=== PATIENT | female | born 1975 | race Caucasian/White ===

== ENCOUNTER 2018-05-03 13:37 | Observation (INO) ==
[2018-05-03] MEDS ORDERED: Sod Chloride 0.9% Inj 1,000 ML IV.SIG ONE (14:09)
--- NOTE | 2018-05-03 14:17 | ED ---
HPI General Chief complaint: GI Bleed Stated complaint: Rectal Bleeding Time Seen by Provider: 05/03/18 13:55 Source: patient History of Present Illness HPI Narrative: Patient is a 42-year-old female with history of hypertension and hyperlipidemia, presents the emergency room for evaluation of GI bleed. Patient reports that she is currently in the area for vacation, she drove from [place] to [place] and arrived on Sunday. Patient reports that since Sunday , she has been having a pain to her rectum. Patient reports that she assumed that she had a hemorrhoid and went to the pharmacy and bought Preparation H as well as sitz baths as well as lidocaine. Patient reports that she applied the creams last night and she woke up this morning with blood in her underwear as well as blood in her pants. Patient initially thought that this may be due to the onset of her menstrual cycle, after further investigation, patient noted to the blood was in her rectum and not from her vagina. Patient reports that she is wearing menstrual pads because of this bleeding, she has gone through 2 pads full of blood already, patient is concerned for this GI bleeding. Patient reports that she has had a GI workup in the past and has had a colonoscopy which was benign. Patient currently is not on any anticoagulants. Patient reports that sometimes she has lower abdominal cramping, she is comfortable at this time. Related Data Home Medications Medication Instructions Recorded Confirmed Synthroid 75 mcg PO DAILY 05/03/18 05/03/18 atenolol 50 mg PO DAILY 05/03/18 05/03/18 hydrochlorothiazide 25 mg PO DAILY 05/03/18 05/03/18 Allergies Allergy/AdvReac Type Severity Reaction Status Date / Time cephalexin [From Keflex] Allergy Hives Verified 05/03/18 13:51 amitriptyline AdvReac Hallucinati Verified 05/03/18 13:51 ons diazepam [From Valium] AdvReac Drowsiness Verified 05/03/18 13:51 pseudoephedrine AdvReac Palpitation Verified 05/03/18 13:51 [From Sudafed] s Review of Systems ROS Unobtainable All other systems reviewed negative except as stated in HPI Gastrointestinal Reports hematochezia PMFSH Medical History Medical History Anxiety (Acute) Colonoscopy planned (Acute) Hypertension (Acute) Inflammatory bowel disease (Acute) Normal endoscopy (Acute) Surgical History Surgical History Hx of tonsillectomy (Acute) Social History Social History Substance History: No History of Abuse Second Hand Smoke Exposure: No Smoking Status: Current every day smoker Tobacco Type: Cigarettes How Often Do You Have a Drink Containing Alcohol: Never Recent Travel in [facility] within the Last 8 Weeks: Yes Recent Out of Country Travel within the Last 8 Weeks: No Exam Narrative Exam Narrative: GENERAL: Mild distress SKIN: Focused skin assessment warm/dry. HEAD: Atraumatic. Normocephalic. EYES: Pupils equal and round. No scleral icterus. No injection or drainage. ENT: No nasal bleeding or discharge. Mucous membranes pink and moist. NECK: Trachea midline. No JVD. CARDIOVASCULAR: Regular rate and rhythm. No murmur appreciated. RESPIRATORY: No accessory muscle use. Clear to auscultation. Breath sounds equal bilaterally. GASTROINTESTINAL: Abdomen soft, non-tender, nondistended. Hepatic and splenic margins not palpable. Rectal exam performed with RN at bedside, patient with thrombosed external hemorrhoid at 7:00 region of her rectum, she has larry hematochezia, grossly positive stool on Hemoccult MUSCULOSKELETAL: No obvious deformities. No clubbing. No cyanosis. No edema. NEUROLOGICAL: Awake and alert. No obvious cranial nerve deficits. Motor grossly within normal limits. Normal speech. PSYCHIATRIC: Appropriate mood and affect; insight and judgment normal. Course Initial Documented Vital Signs Temperature 98.0 F 05/03/18 13:39 Pulse Rate 82 05/03/18 13:39 Respiratory Rate 20 05/03/18 13:39 Blood Pressure 156/80 H 05/03/18 13:39 Pulse Oximetry 95 05/03/18 13:39 Last Documented Vital Signs Temperature 97.4 F L 05/03/18 19:15 Pulse Rate 71 05/03/18 19:15 Respiratory Rate 18 05/03/18 19:15 Blood Pressure 108/61 05/03/18 19:15 Pulse Oximetry 97 05/03/18 19:15 Sign Out Sign Out Data: Patient Sign Out occurred on 05/03/18 at 15:14. Patient's care was discussed, and care was transferred from Carol Baez to Faviola Kemp MD. Sign Out Comment: patient signed out to Dr. Kemp at change of shift patient pending CT of abdomen and pelvis, I did recommend to patient need for observation in the hospital for serial H&H's and workup of her GI bleed Last updated by Carol Baez at 05/03/18 14:58 Post-Handoff Eval: Patient is resting comfortably. She states she is nervous about the bleeding. CT abd/pelvis shows ovarian cyst, no acute abnormalities. Patient informed of these results and admitted for further management. Medical Decision Making MDM Narrative Medical decision making narrative: During the course of the patients emergency department visit, the patients history, examination, and differential diagnosis were reviewed with the patient. The patient was placed on a cardiac rn with oximetry and frequent blood pressure monitoring. The patient had an IV access obtained and blood work sent for analysis. The patient was initially provided IV fluids. Patient has larry hematochezia, she is down to 2 heavy pads today, patient has been typed and screened, CBC, CMP, coags were ordered. CT of the abdomen pelvis also ordered as she does complain of abdominal cramping. Differential Diagnosis Differential Diagnosis: Colitis, hemorrhoids, anemia Medical Records Medical records reviewed: Yes I reviewed the patient's medical records. Lab Data Result diagrams: 05/03/18 20:25 05/03/18 14:30 Lab Results 05/03/18 05/03/18 05/03/18 Range/Units 14:30 14:30 14:30 CBC w Diff Auto diff final WBC 11.2 H (4.0-11.0) th/mm3 RBC 4.43 (4.00-5.30) mil/mm3 Hgb 12.7 (11.6-15.3) gm/dL Hct 37.4 (35.0-46.0) % MCV 84.4 (80.0-100.0) fL MCH 28.6 (27.0-34.0) pg MCHC 33.9 (32.0-36.0) % RDW 14.1 (11.6-17.2) % Plt Count 341 (150-450) th/mm3 MPV 7.1 (7.0-11.0) fL Neut % (Auto) 67.8 (16.0-70.0) % Lymph % (Auto) 27.3 (9.0-44.0) % [place] % (Auto) 3.9 (0.0-8.0) % Eos % (Auto) 0.6 (0.0-4.0) % Baso % (Auto) 0.4 (0.0-2.0) % Neut # (Auto) 7.6 (1.8-7.7) th/mm3 Lymph # (Auto) 3.1 (1.0-4.8) th/mm3 [place] # (Auto) 0.4 (0.0-0.9) th/mm3 Eos # (Auto) 0.1 (0.0-0.4) th/mm3 Baso # (Auto) 0.0 (0.0-0.2) th/mm3 WBC Differential . Differential Comment . PT 9.5 L (9.8-11.6) sec INR 0.9 Ratio APTT 25.7 (24.3-30.1) sec Sodium 138 (136-145) meq/L Potassium 3.5 (3.5-5.1) meq/L Chloride 101 (98-107) meq/L Carbon Dioxide 26.9 (21.0-32.0) meq/L Anion Gap 10 (5-15) meq/L BUN 10 (7-18) mg/dL Creatinine 0.65 (0.50-1.00) mg/dL Estimated GFR Greater than 89 (>89) mL/min Random Glucose 97 (74-106) mg/dL Calcium 8.9 (8.5-10.1) mg/dL Total Bilirubin 0.3 (0.2-1.0) mg/dL AST 20 (15-37) U/L ALT 28 (10-53) U/L Alkaline Phosphatase 66 (45-117) U/L Total Protein 7.9 (6.4-8.2) g/dL Albumin 3.6 (3.4-5.0) g/dL Ur Collection Type Urine Color (Yellw/Straw) Urine Clarity (Clear) Urine pH (5.0-8.5) Ur Specific [place] (1.002-1.035) Urine Protein (Neg-Trace) mg/dL Urine Glucose (UA) (Negative) mg/dL Urine Ketones (Negative) mg/dL Urine Occult Blood (Negative) Urine Nitrate (Negative) Urine Bilirubin (Negative) Urine Urobilinogen (Less than 2) mg/dL Ur Leukocyte Esterase (Negative) Urine WBC (0-5) /hpf Ur Squamous Epith Cells (0-5) /hpf Urine Bacteria (None) /hpf Micro UA Comment Urine Culture Comments Blood Type Blood Type Recheck Antibody Screen 05/03/18 05/03/18 05/03/18 Range/Units 14:35 14:37 20:25 CBC w Diff WBC (4.0-11.0) th/mm3 RBC (4.00-5.30) mil/mm3 Hgb 12.0 (11.6-15.3) gm/dL Hct 36.2 (35.0-46.0) % MCV (80.0-100.0) fL MCH (27.0-34.0) pg MCHC (32.0-36.0) % RDW (11.6-17.2) % Plt Count (150-450) th/mm3 MPV (7.0-11.0) fL Neut % (Auto) (16.0-70.0) % Lymph % (Auto) (9.0-44.0) % [place] % (Auto) (0.0-8.0) % Eos % (Auto) (0.0-4.0) % Baso % (Auto) (0.0-2.0) % Neut # (Auto) (1.8-7.7) th/mm3 Lymph # (Auto) (1.0-4.8) th/mm3 [place] # (Auto) (0.0-0.9) th/mm3 Eos # (Auto) (0.0-0.4) th/mm3 Baso # (Auto) (0.0-0.2) th/mm3 WBC Differential Differential Comment PT (9.8-11.6) sec INR Ratio APTT (24.3-30.1) sec Sodium (136-145) meq/L Potassium (3.5-5.1) meq/L Chloride (98-107) meq/L Carbon Dioxide (21.0-32.0) meq/L Anion Gap (5-15) meq/L BUN (7-18) mg/dL Creatinine (0.50-1.00) mg/dL Estimated GFR (>89) mL/min Random Glucose (74-106) mg/dL Calcium (8.5-10.1) mg/dL Total Bilirubin (0.2-1.0) mg/dL AST (15-37) U/L ALT (10-53) U/L Alkaline Phosphatase (45-117) U/L Total Protein (6.4-8.2) g/dL Albumin (3.4-5.0) g/dL Ur Collection Type Clean catch Urine Color Yellow (Yellw/Straw) Urine Clarity Clear (Clear) Urine pH 5.5 (5.0-8.5) Ur Specific [place] 1.015 (1.002-1.035) Urine Protein Negative (Neg-Trace) mg/dL Urine Glucose (UA) Negative (Negative) mg/dL Urine Ketones Negative (Negative) mg/dL Urine Occult Blood Negative (Negative) Urine Nitrate Negative (Negative) Urine Bilirubin Negative (Negative) Urine Urobilinogen 0.2 (Less than 2) mg/dL Ur Leukocyte Esterase Trace H (Negative) Urine WBC 0-5 (0-5) /hpf Ur Squamous Epith Cells 0-5 (0-5) /hpf Urine Bacteria Rare H (None) /hpf Micro UA Comment Culture not ind Urine Culture Comments Culture not ind Blood Type A Positive Blood Type Recheck Required Antibody Screen Negative Imaging Data Radiologist's impression: ITS Impressions Abdomen/Pelvis CT 05/03/18 14:09 CONCLUSION: 1. Diffuse hypodensity throughout the liver characteristic of steatosis. 2. Status post cholecystectomy. 3. 5 cm left ovarian cyst. 4. No acute process. Discharge Plan Discharge Disposition Patient Disposition: 30 Still Patient Discharge Condition Condition: Stable Discharge Details Discharge Problem: Acute GI bleeding Physicians Team ED Provider: Faviola Kemp Primary Care Provider: UNKNOWN, Attending Provider: Harshad Starkey Other Providers: Conrado Magallanes V Status ED Status: Left Department Discharge Information Discharge Date/Time: 05/03/18 17:50
[2018-05-03 14:43] LABS: Baso % (Auto) 0.4 % (0.0-2.0); Eos # (Auto) 0.1 th/mm3 (0.0-0.4); Eos % (Auto) 0.6 % (0.0-4.0); Hematocrit 37.4 % (35.0-46.0); Hemoglobin 12.7 gm/dL (11.6-15.3); Lymph # (Auto) 3.1 th/mm3 (1.0-4.8); Lymph % (Auto) 27.3 % (9.0-44.0); Mean Corpuscular HGB Conc 33.9 % (32.0-36.0); Mean Corpuscular Hemoglobin 28.6 pg (27.0-34.0); Mean Corpuscular Volume 84.4 fL (80.0-100.0); Mean Platelet Volume 7.1 fL (7.0-11.0); Mono # (Auto) 0.4 th/mm3 (0.0-0.9); Mono % (Auto) 3.9 % (0.0-8.0); Neut # (Auto) 7.6 th/mm3 (1.8-7.7); Neut % (Auto) 67.8 % (16.0-70.0); Platelet Count 341 th/mm3 (150-450); Red Blood Count 4.43 mil/mm3 (4.00-5.30); Red Cell Distribution Width 14.1 % (11.6-17.2); White Blood Count 11.2 th/mm3 (4.0-11.0)
[2018-05-03 14:47] LABS: Chloride 101 meq/L (98-107); Potassium 3.5 meq/L (3.5-5.1); Sodium 138 meq/L (136-145)
[2018-05-03 14:48] LABS: Bilirubin,Urine Negative (Negative); Clarity,Urine Clear (Clear); Color,Urine Yellow (Yellw/Straw); Glucose,Urine (UA) Negative (Negative); Leukocyte Esterase,Urine Trace (Negative); Nitrite,Urine Negative (Negative); PH,Urine 5.5 (5.0-8.5); Specific Gravity,Urine 1.015 (1.002-1.035); Urobilinogen,Urine 0.2 mg/dL (Less than 2)
[2018-05-03 14:50] LABS: Calcium 8.9 mg/dL (8.5-10.1)
[2018-05-03 14:51] LABS: Albumin 3.6 g/dL (3.4-5.0); Anion Gap 10 meq/L (5-15); Blood Urea Nitrogen 10 mg/dL (7-18); Carbon Dioxide 26.9 meq/L (21.0-32.0); Glucose,Random 97 mg/dL (74-106)
[2018-05-03 14:54] LABS: Activated Partial Thrombo Time 25.7 sec (24.3-30.1); Alanine Aminotransferase 28 U/L (10-53); Aspartate Aminotransferase 20 U/L (15-37); Glomerular Filtration Rate Greater Than 89 mL/min (>89); INR 0.9 Ratio; Prothrombin Time 9.5 sec (9.8-11.6)
[2018-05-03 14:55] LABS: Total Protein 7.9 g/dL (6.4-8.2)
[2018-05-03 14:57] LABS: Alkaline Phosphatase 66 U/L (45-117)
[2018-05-03 15:00] LABS: Bacteria,Urine Rare /hpf; Squamous Epithelial Cell,Urine 0-5 /hpf (0-5); WBC,Urine 0-5 /hpf (0-5)
--- NOTE | 2018-05-03 15:23 | CT ---
EXAM DATE: 05/03/2018 2:55 PM EDT AGE/SEX: 42 years / Female INDICATIONS: Abdominal and rectal pain for four days. Rectal bleeding for one day. CLINICAL DATA: This is the patient's initial encounter. Patient reports that signs and symptoms have been present for 1 day and indicates a pain score of 3/10. MEDICAL/SURGICAL HISTORY: Hypertension. None. RADIATION DOSE: 27.51 CTDI (mGy) ; Patient body habitus COMPARISON: No prior exams available for comparison. TECHNIQUE: Multiple contiguous axial images were obtained through the abdomen. Images were obtained using multiple row detector helical technique. Using automated exposure control and adjustment of the mA and/or kV according to patient size, radiation dose was kept as low as reasonably achievable to o btain optimal diagnostic quality images. DICOM format image data is available electronically for rev iew and comparison. FINDINGS: Lower Lungs: The visualized lower lungs are clear. Liver: The liver is diffusely hypodense. There are no space-occupying lesions or evidence of biliary duct dilatation. Postcholecystectomy clips are noted. Spleen: Homogeneous density without enlargement. Pancreas: Unremarkable without mass or calcification. Kidneys: Normal in size and shape. No evidence of mass or hydronephrosis. Adrenal Glands: Unremarkable. Aorta: The aorta and proximal iliac vessels are grossly unremarkable without aneurysmal dilation. Bowel/Mesentery: The bowel loops are grossly unremarkable. The cecum and sigmoid colon have a normal configuration. Abdominal Wall: Intact. Retroperitoneum: No evidence of adenopathy in the retrocrural, para-aortic, or deep pelvic regions. Bladder: Contours are smooth. Reproductive Organs: 5 cm cyst is identified in the left adnexal region. The uterus is unremarkable. Posttubal ligation clips are noted. Inguinal: The inguinal region is unremarkable without evidence of adenopathy. Bony Structures: Unremarkable. CONCLUSION: 1. Diffuse hypodensity throughout the liver characteristic of steatosis. 2. Status post cholecystectomy. 3. 5 cm left ovarian cyst. 4. No acute process. Electronically signed by: Nilesh Willis MD 05/03/2018 3:21 PM EDT
--- NOTE | 2018-05-03 16:12 | P.HPIM ---
History of Present Illness Primary Care Physician: UNKNOWN Chief Complaint: rectal bleed History of Present Illness: patient is a 42 y/o female with history of IBS who presented to ER with rectal bleed. she says that she started to have some rectal discomfort for the past few days while she was driving from [place]. she says that she tried some hemorrhoid cream with no significant relief.she says that she started to have some rectal bleed this morning. she says that she initially thought that she had her menstrual bleed however when she had the second episode she noticed that it was rectal bleed. she denies any abdominal pain, nausea, sob, dizziness. she says that she had colonoscopy four years ago during which she had polypectomy. - Diagnosis (1) Acute GI bleeding Inpatient Certification: I certify that the inpatient services were ordered in accordance with Medicare regulations governing the order. This includes certification that hospital inpatient services are reasonable and necessary and in the case of services not specified as inpatient-only under 42 CFR 419.22(n), that they are appropriately provided as inpatient services in accordance to with the 2-midnight benchmark under 43 CFR 412.3(e) Review of Systems All other systems reviewed negative except as stated in HPI PMFSH - History History Provided By: Patient - Medical History Medical History: Medical History (Last Updated 05/03/18 @ 14:45 by Ade Angeles) Anxiety Colonoscopy planned Hypertension Inflammatory bowel disease Normal endoscopy - Surgical History Surgical History: Surgical History (Last Updated 05/03/18 @ 14:45 by Ade Angeles) Hx of tonsillectomy - Tobacco History Second Hand Smoke Exposure: No Tobacco Use In Past 30 Days: No Smoking Status: Current every day smoker Tobacco Type: Cigarettes - Alcohol History How Often Do You Have a Drink Containing Alcohol: Monthly or less - Substance Use History Substance History: No History of Abuse - Travel History Recent Travel in the [place] Within the Last 8 Weeks: Yes Recent Travel Out of the Country Within the Last 8 Weeks: No - Immunization History Tetanus Immunization: <5 Years Hx Influenza Vaccine This Season: Yes Medications and Allergies Active Medications: Active Medications Sodium Chloride (Ns Inj) 1,000 mls @ 100 mls/hr IV.CONT .Q10H JASPER Sodium Chloride (Ns Flush) 2 ml IV.FLUSH PRN PRN PRN Reason: FLUSH AFTER USING IV ACCESS Allergies Allergy/AdvReac Type Severity Reaction Status Date / Time cephalexin [From Keflex] Allergy Hives Verified 05/03/18 13:51 amitriptyline AdvReac Hallucinati Verified 05/03/18 13:51 ons diazepam [From Valium] AdvReac Drowsiness Verified 05/03/18 13:51 pseudoephedrine AdvReac Palpitation Verified 05/03/18 13:51 [From Sudafed] s Exam Vital signs: Vital Signs 05/03/18 13:39 Temperature 98.0 F Pulse Rate 82 Respiratory Rate 20 Blood Pressure 156/80 H Pulse Oximetry 95 Intake & Output 05/02/18 05/03/18 05/03/18 18:59 06:59 18:59 Weight 127.7 kg Other: Date of Last Bowel Movement 05/03/18 - Constitutional no acute distress - Routine HEENT Exam Eye: Present: PERRL - Routine Neck Exam Present: supple, full ROM - Routine Respiratory Exam Present: CTA bilaterally - Routine Cardiovascular Exam Present: RRR - Routine Abdominal Exam Present: soft - Routine Extremities Exam Present: full ROM - Routine Neurological Exam Present: alert, oriented X3 Results - Labs CBC & Chem 7: 05/03/18 14:30 05/03/18 14:30 Labs: Short CBC 05/03/18 Range/Units 14:30 WBC 11.2 H (4.0-11.0) th/mm3 Hgb 12.7 (11.6-15.3) gm/dL Hct 37.4 (35.0-46.0) % Plt Count 341 (150-450) th/mm3 BMP 05/03/18 14:30 Sodium 138 Potassium 3.5 Chloride 101 Carbon Dioxide 26.9 BUN 10 Creatinine 0.65 Calcium 8.9 Liver Function 05/03/18 Range/Units 14:30 Total Bilirubin 0.3 (0.2-1.0) mg/dL AST 20 (15-37) U/L ALT 28 (10-53) U/L Alkaline Phosphatase 66 (45-117) U/L Albumin 3.6 (3.4-5.0) g/dL Urine 05/03/18 Range/Units 14:37 Urine Color Yellow (Yellw/Straw) Urine Clarity Clear (Clear) Urine pH 5.5 (5.0-8.5) Ur Specific [place] 1.015 (1.002-1.035) Urine Protein Negative (Neg-Trace) mg/dL Urine Glucose (UA) Negative (Negative) mg/dL - Imaging Impressions Abdomen/Pelvis CT 05/03/18 14:09 CONCLUSION: 1. Diffuse hypodensity throughout the liver characteristic of steatosis. 2. Status post cholecystectomy. 3. 5 cm left ovarian cyst. 4. No acute process. Caprini VTE Risk Assessment Caprini VTE Risk Assessment: No/Low Risk (score <= 1) VTE Pharmacological Exception Reason: Active bleeding Caprini Risk Assessment Model: Point Value = 1 Point Value = 2 Point Value = 3 Point Value = 5 Age 41-60 Minor surgery BMI > 25 kg/m2 Swollen legs Varicose veins or History of unexplained or recurrent spontaneous Oral contraceptives or hormone replacement Sepsis (< 1 month) Serious lung disease, including pneumonia (< 1 month) Abnormal pulmonary function Acute myocardial infarction Congestive heart failure (< 1 month) History of inflammatory bowel disease Medical patient at bed rest Age 61-74 Arthroscopic surgery Major open surgery (> 45 min) Laparoscopic surgery (> 45 min) Malignancy Confined to bed (> 72 hours) Immobilizing plaster cast Central venous access Age >= 75 History of VTE Family history of VTE Factor V Leiden Prothrombin [id number] Lupus anticoagulant Anticardiolipin antibodies Elevated serum homocysteine Heparin-induced thrombocytopenia Other congenital or acquired thrombophilia Stroke (< 1 month) Elective arthroplasty Hip, pelvis, or leg fracture Acute spinal cord injury (< 1 month) Prophylaxis Regimen: Total Risk Factor Score Risk Level Prophylaxis Regimen 0-1 Low Early ambulation 2 Moderate Order ONE of the following: *Sequential Compression Device (SCD) *Heparin 5000 units SQ BID 3-4 Higher Order ONE of the following medications: *Heparin 5000 units SQ TID *Enoxaparin/Lovenox 40 mg SQ daily (WT < 150 kg, CrCl > 30 mL/min) *Enoxaparin/Lovenox 30 mg SQ daily (WT < 150 kg, CrCl > 10-29 mL/min) *Enoxaparin/Lovenox 30 mg SQ BID (WT < 150 kg, CrCl > 30 mL/min) AND/OR *Sequential Compression Device (SCD) 5 or more Highest Order ONE of the following medications: *Heparin 5000 units SQ TID (Preferred with Epidurals) *Enoxaparin/Lovenox 40 mg SQ daily (WT < 150 kg, CrCl > 30 mL/min) *Enoxaparin/Lovenox 30 mg SQ daily (WT < 150 kg, CrCl > 10-29 mL/min) *Enoxaparin/Lovenox 30 mg SQ BID (WT < 150 kg, CrCl > 30 mL/min) AND *Sequential Compression Device (SCD) Assessment and Plan - Assessment (1) Acute GI bleeding Code(s): K92.2 - Gastrointestinal hemorrhage, unspecified Status: Acute Plan: keep NPO for now and start on IV fluid- monitor H/H and consult GI. - Plan Discussed Condition With: ER physician and the patient. Discharge Planning: awaiting GI evaluation.
[2018-05-03] MEDS: Sod Chloride 0.9% Inj 1,000 ML IV.CONT SCH (18:25)
[2018-05-03 20:51] LABS: Hematocrit 36.2 % (35.0-46.0)
[2018-05-03] MEDS ORDERED: Magnesium Citrate Liq 300 ML Bottle PO ONE (22:00)
[2018-05-04] MEDS: Sod Chloride 0.9% Inj 1,000 ML IV.CONT SCH (04:52)
[2018-05-04] MEDS ORDERED: PEG 3350/E-Lyte Soln 4000 ML Bottle PO ONE (08:30)
--- NOTE | 2018-05-04 09:21 | P.PN ---
Subjective Interval history: in no acute distress. still with rectal bleed- however with no abdominal pain, nausea, dizziness or sob. Physical Exam Vital signs: Vital Signs 05/03/18 13:39 05/03/18 17:05 05/03/18 19:15 Temperature 98.0 F 97.4 F L Pulse Rate 82 68 71 Respiratory Rate 20 18 Blood Pressure 156/80 H 140/77 108/61 Pulse Oximetry 95 96 97 05/03/18 20:00 05/04/18 00:00 05/04/18 08:00 Temperature 97.2 F L 96.1 F L 97.9 F Pulse Rate 69 66 65 Respiratory Rate 18 17 Blood Pressure 115/62 117/65 109/62 Pulse Oximetry 94 L 95 Intake & Output 05/03/18 05/04/18 05/04/18 18:59 06:59 18:59 Intake Total 580 / 580 1999 0 / 0 Balance 580 / 580 1999 / 1999 0 / 0 Weight 127.7 kg 128.367 kg Intake: IV 1999 NS Inj 1,000 ML @ 100 mls/hr IV 1000 / 1000 .CONT .Q10H JASPER Rx#:[id number] NS Inj 1,000 ML @ Wide Open IV. 1000 / 1000 SIG BOLUS ONE Rx#:[id number] Oral 480 / 480 0 / 0 Oral Supplement 100 / 100 Other: # Voids 3 Date of Last Bowel Movement 05/03/18 05/03/18 Weight On Admission 128.779 kg - Constitutional no acute distress - Routine Respiratory Exam Present: CTA bilaterally - Routine Cardiovascular Exam Present: RRR - Routine Abdominal Exam Present: soft - Routine Extremities Exam Comments: no pedal edema. - Routine Neurological Exam Present: alert, oriented X3 Results - Labs CBC & Chem 7: 05/03/18 20:25 05/03/18 14:30 Laboratory Results - last 24 hr 05/03/18 05/03/18 05/03/18 14:30 14:30 14:30 CBC w Diff Auto diff final WBC 11.2 H RBC 4.43 Hgb 12.7 Hct 37.4 MCV 84.4 MCH 28.6 MCHC 33.9 RDW 14.1 Plt Count 341 MPV 7.1 Neut % (Auto) 67.8 Lymph % (Auto) 27.3 [place] % (Auto) 3.9 Eos % (Auto) 0.6 Baso % (Auto) 0.4 Neut # (Auto) 7.6 Lymph # (Auto) 3.1 [place] # (Auto) 0.4 Eos # (Auto) 0.1 Baso # (Auto) 0.0 WBC Differential . Differential Comment . PT 9.5 L INR 0.9 APTT 25.7 Sodium 138 Potassium 3.5 Chloride 101 Carbon Dioxide 26.9 Anion Gap 10 BUN 10 Creatinine 0.65 Estimated GFR Greater than 89 Random Glucose 97 Calcium 8.9 Total Bilirubin 0.3 AST 20 ALT 28 Alkaline Phosphatase 66 Total Protein 7.9 Albumin 3.6 Ur Collection Type Urine Color Urine Clarity Urine pH Ur Specific [place] Urine Protein Urine Glucose (UA) Urine Ketones Urine Occult Blood Urine Nitrate Urine Bilirubin Urine Urobilinogen Ur Leukocyte Esterase Urine WBC Ur Squamous Epith Cells Urine Bacteria Micro UA Comment Urine Culture Comments Blood Type Blood Type Recheck Antibody Screen 05/03/18 05/03/18 05/03/18 14:35 14:37 20:25 CBC w Diff WBC RBC Hgb 12.0 Hct 36.2 MCV MCH MCHC RDW Plt Count MPV Neut % (Auto) Lymph % (Auto) [place] % (Auto) Eos % (Auto) Baso % (Auto) Neut # (Auto) Lymph # (Auto) [place] # (Auto) Eos # (Auto) Baso # (Auto) WBC Differential Differential Comment PT INR APTT Sodium Potassium Chloride Carbon Dioxide Anion Gap BUN Creatinine Estimated GFR Random Glucose Calcium Total Bilirubin AST ALT Alkaline Phosphatase Total Protein Albumin Ur Collection Type Clean catch Urine Color Yellow Urine Clarity Clear Urine pH 5.5 Ur Specific [place] 1.015 Urine Protein Negative Urine Glucose (UA) Negative Urine Ketones Negative Urine Occult Blood Negative Urine Nitrate Negative Urine Bilirubin Negative Urine Urobilinogen 0.2 Ur Leukocyte Esterase Trace H Urine WBC 0-5 Ur Squamous Epith Cells 0-5 Urine Bacteria Rare H Micro UA Comment Culture not ind Urine Culture Comments Culture not ind Blood Type A Positive Blood Type Recheck Required Antibody Screen Negative - Imaging Impressions Abdomen/Pelvis CT 05/03/18 14:09 CONCLUSION: 1. Diffuse hypodensity throughout the liver characteristic of steatosis. 2. Status post cholecystectomy. 3. 5 cm left ovarian cyst. 4. No acute process. Assessment and Plan - Assessment (1) Acute GI bleeding Code(s): K92.2 - Gastrointestinal hemorrhage, unspecified Status: Acute Plan: keep NPO for now and continue IV fluid- monitor H/H - GI consulted. - Plan Discharge Planning: when GI w/u completed and cleared by GI.
--- NOTE | 2018-05-04 09:31 | P.CONGI ---
History of Present Illness Consult date: 05/04/18 Consult reason: Bright red rectal bleeding, GI bleed Chief complaint: GI BLEED History of Present Illness: This is a 42-year-old female who has been vacationing from the [place] area presented to the emergency room for bright red rectal bleeding on 05/03/2018. She initially reported some pain and pressure in her rectum 4 days ago and mild [id number] medication to treat herself which included Preparation H and sitz baths. When she awakened the next morning she noticed bright red blood and noted that the rectal pain and pressure had subsided currently patient denies any nausea or vomiting or dyspepsia. She does have a history of GERD which is controlled with Protonix p.o. 40 mg daily and before meals. Patient currently denies any abdominal pain or bloating. Patient denies any family history of colon cancer and states her last EGD and colonoscopy were in 2013 in [place]. Patient does note a history of IBS and history of some constipation. Currently this a.m. patient still complains of some bright red rectal bleeding but does currently deny any rectal pressure or pain. Current hemoglobin is 12. CT of the abdomen did show some liver steatosis, status post cholecystectomy, 5 cm ovarian cyst, but otherwise no acute process. <Maura Wisdom - Last Filed: 05/04/18 09:19> Review of Systems All other systems reviewed negative except as stated in HPI <Maura Wisdom - Last Filed: 05/04/18 09:19> PMFSH - History History Provided By: Patient - Medical History Medical History: Medical History (Last Updated 05/03/18 @ 14:45 by Ade Angeles) Anxiety Colonoscopy planned Hypertension Inflammatory bowel disease Normal endoscopy - Surgical History Surgical History: Surgical History (Last Updated 05/03/18 @ 14:45 by Ade Angeles) Hx of tonsillectomy - Tobacco History Second Hand Smoke Exposure: No Tobacco Use In Past 30 Days: Yes Smoking Status: Current every day smoker Tobacco Type: Cigarettes - Alcohol History How Often Do You Have a Drink Containing Alcohol: Never - Substance Use History Substance History: No History of Abuse - Travel History Recent Travel in the [place] Within the Last 8 Weeks: Yes Recent Travel Out of the Country Within the Last 8 Weeks: No - Immunization History Tetanus Immunization: <5 Years Hx Influenza Vaccine This Season: Yes <Maura Wisdom - Last Filed: 05/04/18 09:19> - Medical History Medical History: Medical History (Last Updated 05/03/18 @ 14:45 by Ade Angeles) Anxiety Colonoscopy planned Hypertension Inflammatory bowel disease Normal endoscopy - Surgical History Surgical History: Surgical History (Last Updated 05/03/18 @ 14:45 by Ade Angeles) Hx of tonsillectomy <Zuly Rodriguez - Last Filed: 05/04/18 10:22> Medications and Allergies Active Medications: Active Medications Sodium Chloride (Ns Inj) 1,000 mls @ 100 mls/hr IV.CONT .Q10H JASPER Last Admin: 05/04/18 04:52 Dose: 100 mls/hr Ondansetron HCl (Zofran Inj) 4 mg IV.PUSH Q8H PRN PRN Reason: nausea Last Admin: 05/04/18 00:09 Dose: 4 mg Sodium Chloride (Ns Flush) 2 ml IV.FLUSH PRN PRN PRN Reason: FLUSH AFTER USING IV ACCESS <Maura Wisdom - Last Filed: 05/04/18 09:19> Active Medications: Active Medications Sodium Chloride (Ns Inj) 1,000 mls @ 100 mls/hr IV.CONT .Q10H JASPER Last Admin: 05/04/18 04:52 Dose: 100 mls/hr Ondansetron HCl (Zofran Inj) 4 mg IV.PUSH Q8H PRN PRN Reason: nausea Last Admin: 05/04/18 00:09 Dose: 4 mg Sodium Chloride (Ns Flush) 2 ml IV.FLUSH PRN PRN PRN Reason: FLUSH AFTER USING IV ACCESS <Zuly Rodriguez - Last Filed: 05/04/18 10:22> Allergies Allergy/AdvReac Type Severity Reaction Status Date / Time cephalexin [From Keflex] Allergy Hives Verified 05/03/18 13:51 amitriptyline AdvReac Hallucinati Verified 05/03/18 13:51 ons diazepam [From Valium] AdvReac Drowsiness Verified 05/03/18 13:51 pseudoephedrine AdvReac Palpitation Verified 05/03/18 13:51 [From Sudafed] s Home Medications Medication Instructions Recorded Confirmed Type Synthroid 75 mcg PO DAILY 05/03/18 05/03/18 History atenolol 50 mg PO DAILY 05/03/18 05/03/18 History hydrochlorothiazide 25 mg PO DAILY 05/03/18 05/03/18 History Exam Vital signs: Vital Signs 05/03/18 13:39 05/03/18 17:05 05/03/18 19:15 Temperature 98.0 F 97.4 F L Pulse Rate 82 68 71 Respiratory Rate 20 18 Blood Pressure 156/80 H 140/77 108/61 Pulse Oximetry 95 96 97 05/03/18 20:00 05/04/18 00:00 05/04/18 08:00 Temperature 97.2 F L 96.1 F L 97.9 F Pulse Rate 69 66 65 Respiratory Rate 18 17 Blood Pressure 115/62 117/65 109/62 Pulse Oximetry 94 L 95 Intake & Output 05/03/18 05/04/18 05/04/18 18:59 06:59 18:59 Intake Total 580 / 580 2000 / 2000 0 / 0 Balance 580 / 580 2000 / 2000 0 / 0 Weight 127.7 kg 128.367 kg Intake: IV 2000 / 1999 NS Inj 1,000 ML @ 100 mls/hr IV 1000 / 1000 .CONT .Q10H JASPER Rx#:[id number] NS Inj 1,000 ML @ Wide Open IV. 1000 / 1000 SIG BOLUS ONE Rx#:[id number] Oral 480 / 480 0 / 0 Oral Supplement 100 / 100 Other: # Voids 3 Date of Last Bowel Movement 05/03/18 05/03/18 Weight On Admission 128.779 kg - Constitutional mild distress (Overweight) - Routine HEENT Exam Head: Present: normocephalic, atraumatic Eye: Present: EOMI ENT: Present: mucous membranes moist - Routine Respiratory Exam Present: CTA bilaterally - Routine Cardiovascular Exam Present: RRR - Routine Abdominal Exam Present: soft (Round, no obvious tenderness to light palpation) - Routine Skin Exam Present: intact - Routine Neurological Exam Present: alert, oriented X3 <Maura Wisdom - Last Filed: 05/04/18 09:19> Vital signs: Vital Signs 05/03/18 13:39 05/03/18 17:05 05/03/18 19:15 Temperature 98.0 F 97.4 F L Pulse Rate 82 68 71 Respiratory Rate 20 18 Blood Pressure 156/80 H 140/77 108/61 Pulse Oximetry 95 96 97 05/03/18 20:00 05/04/18 00:00 05/04/18 08:00 Temperature 97.2 F L 96.1 F L 97.9 F Pulse Rate 69 66 65 Respiratory Rate 18 17 Blood Pressure 115/62 117/65 109/62 Pulse Oximetry 94 L 95 05/04/18 09:49 05/04/18 10:00 Temperature 98.5 F Pulse Rate 66 Respiratory Rate 17 Blood Pressure 117/65 Pulse Oximetry 96 Intake & Output 05/03/18 05/04/18 05/04/18 18:59 06:59 18:59 Intake Total 580 / 580 1999 0 / 0 Balance 580 / 580 1999 0 / 0 Weight 127.7 kg 128.367 kg Intake: IV 1999 NS Inj 1,000 ML @ 100 mls/hr IV 1000 / 1000 .CONT .Q10H JASPER Rx#:[id number] NS Inj 1,000 ML @ Wide Open IV. 1000 / 1000 SIG BOLUS ONE Rx#:[id number] Oral 480 / 480 0 / 0 Oral Supplement 100 / 100 Other: # Voids 3 Date of Last Bowel Movement 05/03/18 05/03/18 Weight On Admission 128.779 kg <Zuly Rodriguez - Last Filed: 05/04/18 10:22> Results - Labs CBC & Chem 7: 05/03/18 20:25 05/03/18 14:30 Labs: Laboratory Results - last 24 hr 05/03/18 05/03/18 05/03/18 14:30 14:30 14:30 CBC w Diff Auto diff final WBC 11.2 H RBC 4.43 Hgb 12.7 Hct 37.4 MCV 84.4 MCH 28.6 MCHC 33.9 RDW 14.1 Plt Count 341 MPV 7.1 Neut % (Auto) 67.8 Lymph % (Auto) 27.3 [place] % (Auto) 3.9 Eos % (Auto) 0.6 Baso % (Auto) 0.4 Neut # (Auto) 7.6 Lymph # (Auto) 3.1 [place] # (Auto) 0.4 Eos # (Auto) 0.1 Baso # (Auto) 0.0 WBC Differential . Differential Comment . PT 9.5 L INR 0.9 APTT 25.7 Sodium 138 Potassium 3.5 Chloride 101 Carbon Dioxide 26.9 Anion Gap 10 BUN 10 Creatinine 0.65 Estimated GFR Greater than 89 Random Glucose 97 Calcium 8.9 Total Bilirubin 0.3 AST 20 ALT 28 Alkaline Phosphatase 66 Total Protein 7.9 Albumin 3.6 Ur Collection Type Urine Color Urine Clarity Urine pH Ur Specific [place] Urine Protein Urine Glucose (UA) Urine Ketones Urine Occult Blood Urine Nitrate Urine Bilirubin Urine Urobilinogen Ur Leukocyte Esterase Urine WBC Ur Squamous Epith Cells Urine Bacteria Micro UA Comment Urine Culture Comments Blood Type Blood Type Recheck Antibody Screen 05/03/18 05/03/18 05/03/18 14:35 14:37 20:25 CBC w Diff WBC RBC Hgb 12.0 Hct 36.2 MCV MCH MCHC RDW Plt Count MPV Neut % (Auto) Lymph % (Auto) [place] % (Auto) Eos % (Auto) Baso % (Auto) Neut # (Auto) Lymph # (Auto) [place] # (Auto) Eos # (Auto) Baso # (Auto) WBC Differential Differential Comment PT INR APTT Sodium Potassium Chloride Carbon Dioxide Anion Gap BUN Creatinine Estimated GFR Random Glucose Calcium Total Bilirubin AST ALT Alkaline Phosphatase Total Protein Albumin Ur Collection Type Clean catch Urine Color Yellow Urine Clarity Clear Urine pH 5.5 Ur Specific [place] 1.015 Urine Protein Negative Urine Glucose (UA) Negative Urine Ketones Negative Urine Occult Blood Negative Urine Nitrate Negative Urine Bilirubin Negative Urine Urobilinogen 0.2 Ur Leukocyte Esterase Trace H Urine WBC 0-5 Ur Squamous Epith Cells 0-5 Urine Bacteria Rare H Micro UA Comment Culture not ind Urine Culture Comments Culture not ind Blood Type A Positive Blood Type Recheck Required Antibody Screen Negative - Imaging Impressions Abdomen/Pelvis CT 05/03/18 14:09 CONCLUSION: 1. Diffuse hypodensity throughout the liver characteristic of steatosis. 2. Status post cholecystectomy. 3. 5 cm left ovarian cyst. 4. No acute process. <Maura Wisdom - Last Filed: 05/04/18 09:19> - Labs CBC & Chem 7: 05/04/18 09:54 05/03/18 14:30 Labs: Laboratory Results - last 24 hr 05/03/18 05/03/18 05/03/18 14:30 14:30 14:30 CBC w Diff Auto diff final WBC 11.2 H RBC 4.43 Hgb 12.7 Hct 37.4 MCV 84.4 MCH 28.6 MCHC 33.9 RDW 14.1 Plt Count 341 MPV 7.1 Neut % (Auto) 67.8 Lymph % (Auto) 27.3 [place] % (Auto) 3.9 Eos % (Auto) 0.6 Baso % (Auto) 0.4 Neut # (Auto) 7.6 Lymph # (Auto) 3.1 [place] # (Auto) 0.4 Eos # (Auto) 0.1 Baso # (Auto) 0.0 WBC Differential . Differential Comment . PT 9.5 L INR 0.9 APTT 25.7 Sodium 138 Potassium 3.5 Chloride 101 Carbon Dioxide 26.9 Anion Gap 10 BUN 10 Creatinine 0.65 Estimated GFR Greater than 89 Random Glucose 97 Calcium 8.9 Total Bilirubin 0.3 AST 20 ALT 28 Alkaline Phosphatase 66 Total Protein 7.9 Albumin 3.6 Ur Collection Type Urine Color Urine Clarity Urine pH Ur Specific [place] Urine Protein Urine Glucose (UA) Urine Ketones Urine Occult Blood Urine Nitrate Urine Bilirubin Urine Urobilinogen Ur Leukocyte Esterase Urine WBC Ur Squamous Epith Cells Urine Bacteria Micro UA Comment Urine Culture Comments Blood Type Blood Type Recheck Antibody Screen 05/03/18 05/03/18 05/03/18 14:35 14:37 20:25 CBC w Diff WBC RBC Hgb 12.0 Hct 36.2 MCV MCH MCHC RDW Plt Count MPV Neut % (Auto) Lymph % (Auto) [place] % (Auto) Eos % (Auto) Baso % (Auto) Neut # (Auto) Lymph # (Auto) [place] # (Auto) Eos # (Auto) Baso # (Auto) WBC Differential Differential Comment PT INR APTT Sodium Potassium Chloride Carbon Dioxide Anion Gap BUN Creatinine Estimated GFR Random Glucose Calcium Total Bilirubin AST ALT Alkaline Phosphatase Total Protein Albumin Ur Collection Type Clean catch Urine Color Yellow Urine Clarity Clear Urine pH 5.5 Ur Specific [place] 1.015 Urine Protein Negative Urine Glucose (UA) Negative Urine Ketones Negative Urine Occult Blood Negative Urine Nitrate Negative Urine Bilirubin Negative Urine Urobilinogen 0.2 Ur Leukocyte Esterase Trace H Urine WBC 0-5 Ur Squamous Epith Cells 0-5 Urine Bacteria Rare H Micro UA Comment Culture not ind Urine Culture Comments Culture not ind Blood Type A Positive Blood Type Recheck Required Antibody Screen Negative 05/04/18 09:54 CBC w Diff WBC 8.5 RBC 4.40 Hgb 12.4 Hct 36.9 MCV 84.0 MCH 28.1 MCHC 33.4 RDW 14.7 Plt Count 305 MPV 7.2 Neut % (Auto) Lymph % (Auto) [place] % (Auto) Eos % (Auto) Baso % (Auto) Neut # (Auto) Lymph # (Auto) [place] # (Auto) Eos # (Auto) Baso # (Auto) WBC Differential Differential Comment PT INR APTT Sodium Potassium Chloride Carbon Dioxide Anion Gap BUN Creatinine Estimated GFR Random Glucose Calcium Total Bilirubin AST ALT Alkaline Phosphatase Total Protein Albumin Ur Collection Type Urine Color Urine Clarity Urine pH Ur Specific [place] Urine Protein Urine Glucose (UA) Urine Ketones Urine Occult Blood Urine Nitrate Urine Bilirubin Urine Urobilinogen Ur Leukocyte Esterase Urine WBC Ur Squamous Epith Cells Urine Bacteria Micro UA Comment Urine Culture Comments Blood Type Blood Type Recheck Antibody Screen - Imaging Impressions Abdomen/Pelvis CT 05/03/18 14:09 CONCLUSION: 1. Diffuse hypodensity throughout the liver characteristic of steatosis. 2. Status post cholecystectomy. 3. 5 cm left ovarian cyst. 4. No acute process. <Zuly Rodriguez - Last Filed: 05/04/18 10:22> Assessment and Plan - Plan Bright red rectal bleeding symptoms of lower GI bleeding probable hemorrhoids. Currently patient continues to have some oozing of bright red blood. Hemoglobin 12 and stable for now. Patient does have history of IBS and GERD controlled with Protonix and on atenolol. No family history of colon cancer Patient is out from out of [facility] but needs to be stabilized before her trip home. Last colonoscopy and EGD done in 2013. Plan N.p.o. today Colonoscopy today with [facility] ,consent Patient prepped this past evening Anti-medic PPI Monitor labs Further recommendations to follow Patient was seen per myself and Dr. Rodriguez, this note was written on her behalf <Maura Wisdom - Last Filed: 05/04/18 09:19> - Attending Attestation seen, examined agree with above consult called yesterday to , as per him was not officially notified, nurse called me last night to inform me that patient was not seen by gi yet arrangements for colonoscopy IRC were made for today Discussed with patient <Zuly Rodriguez - Last Filed: 05/04/18 10:22>
[2018-05-04 10:14] LABS: Hematocrit 36.9 % (35.0-46.0); Hemoglobin 12.4 gm/dL (11.6-15.3); Mean Corpuscular HGB Conc 33.4 % (32.0-36.0); Mean Corpuscular Hemoglobin 28.1 pg (27.0-34.0); Mean Platelet Volume 7.2 fL (7.0-11.0); Platelet Count 305 th/mm3 (150-450); Red Cell Distribution Width 14.7 % (11.6-17.2); White Blood Count 8.5 th/mm3 (4.0-11.0)
--- NOTE | 2018-05-04 10:50 | GIPROC ---
[facility] [address] [place] [address], [id number] COLONOSCOPY PROCEDURE REPORT EXAM DATE: 05/04/2018 PATIENT NAME: Cindy Diop MR #: [id number] BIRTHDATE: 1975 ENDOSCOPIST: Zuly Rodriguez MD ORDER #: [id number] COOKEE: Kym Naik and Bridget Boo STATUS: inpatient INDICATIONS: The patient is a 42 yr old female here for a colonoscopy due to rectal bleeding PROCEDURE PERFORMED: Thermal destruction internal hemorrhoids Colonoscopy, diagnostic MEDICATIONS: None and Per Anesthesia. PREP QUALITY: good PREP TYPE:Other: ESTIMATED BLOOD LOSS: None CONSENT: The patient understands the risks and benefits of the procedure and understands that these risks include, but are not limited to: sedation, allergic reaction, infection, perforation and/or bleeding. Alternative means of evaluation and treatment include, among others: physical exam, x-rays, and/or surgical intervention. The patient elects to proceed with this endoscopic procedure. medical equipment was checked for proper function. Hand hygiene and appropriate measures for infection prevention was taken. After the risks, benefits and alternatives of the procedure were thoroughly explained, Informed consent was verified, confirmed and timeout was successfully executed by the treatment team. A digital exam revealed external hemorrhoids, one of them thrombosed, signs of recent bleeding . The Pentax [id number] endoscope was introduced through the anus and advanced to the cecum, which was identified by both the appendix and ileocecal valve. The instrument was then slowly withdrawn as the colon was fully examined. COLON FINDINGS: The colonic mucosa appeared normal. Retroflexed views revealed internal hemorrhoids and Retroflexed views revealed small internal hemorrhoids The scope was then completely withdrawn from the patient and the procedure terminated. PROCEDURE WITHDRAWAL TIME:6minutes ADVERSE EVENTS: There were no complications. IMPRESSIONS: 1. The colonic mucosa appeared normal 2. Retroflexed views revealed internal hemorrhoids 3. Retroflexed views revealed small internal hemorrhoids 4. Revealed external hemorrhoids , one of them thrombosed with signs of recent bleeding RECOMMENDATIONS: 1. Benefiber 2 tsp daily 2. Proctozone cream warm sitz bath fiber supplements lidocaine cream ok to dc home from gi point if still problems please see colorectal surgery RECALL: Return 5 years Colonoscopy Zuly Rodriguez MD eSigned: Zuly Rodriguez MD 05/04/2018 10:49 AM cc: PATIENT NAME: Cindy Diop MR#: [id number]
[2018-05-04] MEDS ORDERED: Hydrocortisone/Pramoxine Foam 10 GM Can RECTAL PRN (10:53)
[2018-05-04] MEDS ORDERED: Lidocaine PF 1% Inj 5 ML Syringe INFILTRATN ONE (12:00)
[2018-05-04] MEDS ORDERED: Psyllium Husk SF 3.4 GM in 5.8 GM Packet PO SCH (13:00)
== END 2018-05-04 14:49 | disposition home or self-care (01) ==
LOC: PHEDA 13:37 → PH3 13:37 → PHED 13:37 → PH3 17:50
PROVIDERS: ADMIT Internal Medicine; ATTEND Internal Medicine
PROC: COLONOS (2018-05-04 10:24)